=== PATIENT | female | born 1960 | race African-American/Black ===

== ENCOUNTER 2017-04-06 21:22 | Emergency (ER) | payer SELFPAY ==
[~2017-04-06] VITALS: Ht 165.1 cm; Wt 95.3 kg
[2017-04-06 21:25] VITALS: BP 181/104
[2017-04-06] MEDS ORDERED: ONDANSETRON 4 MG TAB.RAPDIS ONE (21:56)
[2017-04-06] MEDS ORDERED: HYDROMORPHONE INJ 2 MG/ML DISP.SYRIN ONE (21:56)
[2017-04-06] MEDS ORDERED: HYDROMORPHONE 1 MG/1 ML DISP.SYRIN IM ONE (22:00)
[2017-04-06] MEDS ORDERED: ONDANSETRON 4 MG TAB.RAPDIS SL ONE (22:00)
== END 2017-04-06 22:25 | disposition home or self-care (01) ==
LOC: ER 21:25
DX: M54.41 Lumbago with sciatica, right side (principal); I10 Essential (primary) hypertension; F17.200 Nicotine dependence, unspecified, uncomplicated; Z90.49 Acquired absence of other specified parts of digestive tract; Z90.89 Acquired absence of other organs; Z88.6 Allergy status to analgesic agent
CPT/HCPCS: A4606; J1170; Q0162; Z7610

== ENCOUNTER 2017-04-07 01:07 | Emergency (ER) | payer SELFPAY ==
[~2017-04-07] VITALS: Ht 167.6 cm; Wt 90.7 kg
--- NOTE | 2017-04-07 01:38 | NUR ---
PT AMBULATORY TO ER BED 6, PT HERE ABOUT 3 HOURS AGO FOR THE SAME COMPLAINT. PT C/O LOWER BACK PAIN. VSS/NAD NOTED/RESP EVEN UNLABORED/SKIN WARM AND DRY/AOX4. MD AT BEDSIDE FOR EVAL.
[2017-04-07] MEDS ORDERED: HYDROCODONE/APAP 10/325MG 1 EA TABLET ONE (01:42)
[2017-04-07] MEDS ORDERED: DIAZEPAM 5 MG/ML 2 ML DISP.SYRIN ONE (01:52)
[2017-04-07] MEDS ORDERED: HYDROCODONE/APAP 10/325MG 1 EA TABLET PO ONE (02:00)
[2017-04-07] MEDS ORDERED: DIAZEPAM 5 MG/ML 2 ML DISP.SYRIN IM ONE (02:00)
[2017-04-07 02:21] VITALS: BP 158/89
--- NOTE | 2017-04-07 02:21 | NUR ---
Patient discharged to home in stable condition. Written and verbal after care instructions given. Patient verbalizes understanding of instruction. Patient is ambulatory with steady gait, no further complaints.
== END 2017-04-07 02:22 | disposition home or self-care (01) ==
LOC: ER 01:11
DX: M54.41 Lumbago with sciatica, right side (principal); G89.29 Other chronic pain; I10 Essential (primary) hypertension; F17.200 Nicotine dependence, unspecified, uncomplicated; Z90.49 Acquired absence of other specified parts of digestive tract; Z90.89 Acquired absence of other organs; Z88.6 Allergy status to analgesic agent
CPT/HCPCS: A4606; J3360; Z7610

== ENCOUNTER 2020-06-13 20:46 | Inpatient (IN) | payer MEDICAID ==
[~2020-06-13] VITALS: Ht 165.1 cm; Wt 104.3 kg
--- NOTE | 2020-06-13 21:00 | NUR ---
MS RN/ RECEIVED ADMIT PT RECEIVED. STABLE CONDITION. FROM [facility]. ALERT AND ORIENTED X4. CALM, COOPERATIVE. CHIEF COMPLAINT/ DIAGNOSIS OF CHEST PAIN. ADMINISTERED MORPHINE [id number]. LAC # 18. INTACT, PATENT, FLUSHING WELL. PT NPO BY MIDNIGHT. WILL CONTINUE TO MONITOR. WILL CONTINUE PLAN OF CARE.
[2020-06-13 22:00] VITALS: BP 106/69
[2020-06-13] MEDS ORDERED: MORPHINE SULFATE INJ 2 MG/ML DISP.SYRIN IV PRN (23:00)
[2020-06-13] MEDS ORDERED: ACETAMINOPHEN 650 MG/SUPP.RECT RC PRN (23:00)
[2020-06-13] MEDS ORDERED: ONDANSETRON HCL/PF 4 MG/2 ML VIAL IV PRN (23:00)
[2020-06-13] MEDS: PANTOPRAZOLE 40 MG VIAL IV SCH (23:19)
[2020-06-14] VITALS (15 sets, daily range): BP systolic 77–125; BP diastolic 16–78
[2020-06-14] MEDS: IV D5/0.45 NACL 1,000 ML IV SCH ×2 (00:33→17:25)
[2020-06-14] MEDS ORDERED: IODIXANOL 150 ML IV ONE ×2 (06:24→08:35)
[2020-06-14] MEDS ORDERED: IV NS 0.9% 1,000 ML ONE (06:24)
[2020-06-14] MEDS ORDERED: LIDOCAINE HCL/MPF 1% 30 ML VIAL IJ ONE (06:24)
[2020-06-14] MEDS ORDERED: MIDAZOLAM HCL 2 MG/2ML VIAL ONE ×2 (07:23→07:40)
[2020-06-14] MEDS ORDERED: NITROGLYCERIN ICAR 1,000 MCG/10 ML VIAL ICAR ONE ×2 (07:23→08:09)
[2020-06-14] MEDS ORDERED: FENTANYL PF 100MCG/2ML AMPUL ONE ×2 (07:24→07:39)
--- NOTE | 2020-06-14 07:32 | NUR ---
CHILD CARE COORDINATOR CLOSING PT LAYING DOWN. ALERT AND ORIENTED X4. CALM, COOPERATIVE. CARDIAC CATH. SCHEDULED 0730. PT AWARE. SIGNED CONSENT. NPO SINCE MIDNIGHT. ST 105. LAC #18 REMOVED. RIGHT HAND AC #20. PATENT, INTACT, FLUSHING WELL. BED LOCKED. CALL LIGHT WITHIN REACH. WILL ENDORSE TO NEXT SHIFT. WILL CONTINUE TO MONITOR. WILL CONTINUE PLAN OF CARE.
[2020-06-14] MEDS ORDERED: diphenhydrAMINE HCL 50 MG/ML VIAL ONE ×2 (07:42→08:38)
[2020-06-14] MEDS ORDERED: HYDROMORPHONE 1 MG/1 ML DISP.SYRIN ONE ×2 (08:00→08:32)
[2020-06-14] MEDS ORDERED: NICARDIPINE HCL 25 MG/10 ML VIAL IV ONE (08:01)
[2020-06-14] MEDS ORDERED: HEPARIN SODIUM, PORCINE 5000 UNITS/1 ML VIAL ONE (08:09)
[2020-06-14] MEDS ORDERED: IODIXANOL 320MG/ML 50 ML IV ONE (08:09)
[2020-06-14] MEDS ORDERED: HEPARIN SODIUM, PORCINE 1,000 UNIT/ML VIAL ONE (08:09)
[2020-06-14] MEDS ORDERED: TICAGRELOR 90 MG TABLET PO ONE (08:18)
[2020-06-14] MEDS ORDERED: ASPIRIN 81 MG TAB.CHEW ONE (08:19)
[2020-06-14] MEDS ORDERED: hydrALAZINE HCL IV 20 MG VIAL ONE ×2 (08:23→09:05)
[2020-06-14] MEDS ORDERED: IODIXANOL 320MG/ML 100 ML IV ONE (08:56)
[2020-06-14] MEDS ORDERED: MORPHINE SULFATE INJ 2 MG/ML DISP.SYRIN ONE (08:56)
--- NOTE | 2020-06-14 09:30 | NUR ---
tele fluid designer: notes pt out of unit, report given by [email or web address] ([email or web address]).
--- NOTE | 2020-06-14 10:00 | NUR ---
ROSE GRADER NOTES RECEIVED PT FROM THERAPEUTIC SPECIALIST, BED SIDE REPORT OBTAIN FROM THERAPEUTIC SPECIALIST RN. PT IS AWAKE AND ORIENTED X3. WAS IN THERAPEUTIC SPECIALIST FOR STENT PLACEMENT TO RCA AND MID LAV. RIGHT RADIAL TR BAND AND RIGHT GROIN ANGIO SEAL IN PLACE. NO BLEEDING NOTED. WILL CONTINUE MONITOR.
[2020-06-14] MEDS ORDERED: CHOL100040 PO (12:29)
[2020-06-14] MEDS ORDERED: GABA-532 PO ×2 (12:29)
[2020-06-14] MEDS ORDERED: AMLO5TAB4 PO (12:29)
[2020-06-14] MEDS ORDERED: LISI40TA4 PO (12:29)
[2020-06-14] MEDS ORDERED: ROSU20TA2 PO (12:29)
[2020-06-14] MEDS ORDERED: CYCL10TA9 PO (12:29)
[2020-06-14] MEDS ORDERED: NAPR-1009 PO (12:29)
[2020-06-14] MEDS ORDERED: ATEN25TA PO (12:29)
[2020-06-14] MEDS ORDERED: HYDR-3976 PO (12:29)
[2020-06-14] MEDS: LORAZEPAM INJ 2 MG/ML VIAL IV PRN (12:42)
[2020-06-14] MEDS: METOPROLOL TARTRATE 25 MG TABLET PO SCH ×2 (13:57→20:01)
--- NOTE | 2020-06-14 19:30 | NUR ---
STORE SALES MANAGER NOTES RECEIVED PATIENT IN BED, AWAKE, A/O X3 ABLE TO VERBALIZE NEEDS. RIGHT WRIST WITH PRESSURE DRESSING, REPLACED WITH TEGADERM. SITE CLEAN AND DRY, NO SWELLING OR BLEEDING, DENIES ANY TINGLING SENSATION IN FINGERS, PULSE PALPABLE. RIGHT FEMORAL SITE DRESSING CLEAN DRY AND INTACT, NO BLEEDING NOTED, DENIES ANY TINGLING OR NUMBNESS IN LOWER EXTREMITY. WILL MONITOR CLOSELY
--- NOTE | 2020-06-14 19:56 | NUR ---
PROFESSOR IN FAMILY STUDIES NOTES PATIENT VERBALIZES SHE IS "FEELING ANXIOUS" AND REPORTS THAT ATIVAN THAT WAS GIVEN EARLIER TODAY WAS INEFFECTIVE. PATIENT DENIES ANY CHEST PAIN. OFFERED O2 VIA NC TO PATIENT, BUT SHE REFUSES. VITAL SIGNS STABLE. DR ABRAMS NOTIFIED, WITH NEW ORDER FOR XANAX 2MG PO Q8H FOR ANXIETY. WILL CARRY OUT NEW ORDERS
[2020-06-14] MEDS: ALPRAZOLAM 1 MG TABLET PO PRN (20:13)
[2020-06-14] MEDS: PANTOPRAZOLE 40 MG VIAL IV SCH (23:09)
[2020-06-15] VITALS (32 sets, daily range): BP systolic 35–175; BP diastolic 22–114
--- NOTE | 2020-06-15 | NUR ---
PROFESSIONAL BONDSMAN NOTES XANAX PO EFFECTIVE, PATIENT LAYING IN BED, AROUSABLE, BUT STATES "IM FEELING A LOT BETTER", DENIES ANY FEELING OF ANXIETY, DENIES CHEST PAIN. WILL MONITOR CLOSELY
[2020-06-15 04:15] LABS: BASOPHILS % (AUTO) 0.1 % (0.0-2.0); EOSINOPHILS % (AUTO) 0.2 % (0.0-6.0); HEMATOCRIT 40 % (33-45); HEMOGLOBIN 13.1 g/dL (11.5-14.8); LYMPHOCYTES # (AUTO) 1.6 /CMM (0.8-4.8); LYMPHOCYTES % (AUTO) 16.9 % (20.0-44.0); MEAN CORPUSCULAR HGB CONC 33 g/dl (31.0-36.0); MEAN CORPUSCULAR VOLUME 85 fL (82-100); MONOCYTES # (AUTO) 0.8 /CMM (0.1-1.30); MONOCYTES % (AUTO) 9.1 % (2.0-12.0); NEUTROPHILS # (AUTO) 6.8 /CMM (1.8-8.9); NEUTROPHILS % (AUTO) 73.7 % (43.0-81.0); PLATELET COUNT (AUTO) 267 /CMM (150-450); RED BLOOD CELL COUNT(AUTO) 4.69 MIL/uL (4.0-5.2); WHITE BLOOD COUNT (AUTO) 9.2 K/uL (4.3-11.0)
[2020-06-15 04:45] LABS: CREATININE 0.6 mg/dL (0.6-1.3); MAGNESIUM 1.9 mg/dL (1.8-2.4); PHOSPHORUS 3.2 mg/dL (2.5-4.9)
[2020-06-15 05:11] LABS: POTASSIUM 2.7 mmol/L (3.5-5.1)
--- NOTE | 2020-06-15 06:50 | NUR ---
MEDICAL SCIENTIFIC LIAISON NOTES POTASSIUM LEVEL = 2.7. DR ABRAMS NOTIFIED, WITH ORDER FOR DUR 40 MEQ PO X 2 DOSES, 4 HOURS APART, TOTAL OF 80 MEQ KDUR PO. WILL CARRY OUT NEW ORDERS
--- NOTE | 2020-06-15 08:00 | NUR ---
RN OPENING PT IS SITTING UP ALERT AND ORIENTED X4. CALM, COOPERATIVE. PT AWARE. SIGNED CONSENT. LEFT HAND AC #20. PATENT, INTACT, FLUSHING WELL.SAFETY MEASUREMENTS ARE IMPLEMENTED PER HOSPITAL POLICY. BED LOCKED. CALL LIGHT WITHIN REACH. WILL ENDORSE TO NEXT SHIFT. WILL CONTINUE TO MONITOR
[2020-06-15] MEDS: POTASSIUM CHLORIDE 20 MEQ TAB.PRT.SR PO SCH ×2 (08:10→08:39)
[2020-06-15] MEDS: METOPROLOL TARTRATE 25 MG TABLET PO SCH ×2 (08:16→21:36)
[2020-06-15] MEDS: IV D5/0.45 NACL 1,000 ML IV SCH (09:45)
--- NOTE | 2020-06-15 16:00 | NUR ---
RN NOTES NO ACUTE RESPIRATORY DISTRESS NOTED.
--- NOTE | 2020-06-15 18:44 | NUR ---
RN CLOSING NOTES PT IS SITTING UP ALERT AND ORIENTED X4. CALM, COOPERATIVE. PT AWARE. SIGNED CONSENT. LEFT HAND AC #20. PATENT, INTACT, FLUSHING WELL.SAFETY MEASUREMENTS ARE IMPLEMENTED PER HOSPITAL POLICY. BED LOCKED. CALL LIGHT WITHIN REACH. WILL ENDORSE TO NEXT SHIFT. PT SIGNED CONSENT FOR PROCEDURE AND ANESTHESIA. WILL ENDORSE TO PM NURSE FOR RAIANE
--- NOTE | 2020-06-15 19:00 | NUR ---
EDGERMAN NOTES PATIENT'S BP CUFF NOTED TO BE OUT OF PLACE, WRAPPED AROUND PATIENTS ELBOW. CUFF REPOSITIONED. BP WNL, WILL MONITOR
--- NOTE | 2020-06-15 19:40 | NUR ---
MANAGER SUPPORT SERVICES NOTES POST PROCEDURE ORDERS-MEDICATIONS TRANSCRIBED
[2020-06-15] MEDS: ALPRAZOLAM 1 MG TABLET PO PRN (21:36)
[2020-06-15] MEDS: PANTOPRAZOLE 40 MG VIAL IV SCH (22:02)
[2020-06-16] VITALS (27 sets, daily range): BP systolic 74–194; BP diastolic 39–152
[2020-06-16 04:22] LABS: BASOPHILS % (AUTO) 0.2 % (0.0-2.0); EOSINOPHILS % (AUTO) 0.3 % (0.0-6.0); HEMATOCRIT 39 % (33-45); HEMOGLOBIN 12.4 g/dL (11.5-14.8); LYMPHOCYTES # (AUTO) 2.3 /CMM (0.8-4.8); LYMPHOCYTES % (AUTO) 28.4 % (20.0-44.0); MEAN CORPUSCULAR HGB CONC 32 g/dl (31.0-36.0); MEAN CORPUSCULAR VOLUME 86 fL (82-100); MONOCYTES # (AUTO) 0.9 /CMM (0.1-1.30); MONOCYTES % (AUTO) 11.4 % (2.0-12.0); NEUTROPHILS # (AUTO) 4.8 /CMM (1.8-8.9); NEUTROPHILS % (AUTO) 59.7 % (43.0-81.0); PLATELET COUNT (AUTO) 252 /CMM (150-450); WHITE BLOOD COUNT (AUTO) 8.1 K/uL (4.3-11.0)
[2020-06-16 04:34] LABS: CALCIUM, SERUM 8.9 mg/dL (8.5-10.1); CREATININE 0.6 mg/dL (0.6-1.3); MAGNESIUM 1.9 mg/dL (1.8-2.4); PHOSPHORUS 3.7 mg/dL (2.5-4.9); POTASSIUM 3.6 mmol/L (3.5-5.1)
[2020-06-16] MEDS: IV D5/0.45 NACL 1,000 ML IV SCH ×2 (04:37→18:27)
--- NOTE | 2020-06-16 08:36 | NUR ---
PT ABLE TO SIGN CONSENT FOR PROCEDURE TO REVASCULARIZE THE RIGHT SUBCLAVIAN ARTERY AND LEFT COMMON ILIAC ARTERY AT 1200
[2020-06-16] MEDS: PANTOPRAZOLE 40 MG TABLET.DR PO SCH (08:41)
[2020-06-16] MEDS: TICAGRELOR 90 MG TABLET PO SCH ×2 (09:00→17:26)
[2020-06-16] MEDS: METOPROLOL TARTRATE 25 MG TABLET PO SCH ×2 (09:00→21:07)
[2020-06-16] MEDS: ASPIRIN 81 MG TAB.CHEW PO SCH (09:00)
[2020-06-16] MEDS ORDERED: IODIXANOL 150 ML IV ONE ×2 (10:37→11:35)
[2020-06-16] MEDS ORDERED: LIDOCAINE HCL/MPF 1% 30 ML VIAL IJ ONE (10:37)
--- NOTE | 2020-06-16 11:00 | NUR ---
PT TRANSPORTED FOR PROCEDURE
[2020-06-16] MEDS ORDERED: KETAMINE HCL (500MG/10ML) 50 MG/ML VIAL ONE (11:10)
[2020-06-16] MEDS ORDERED: FENTANYL PF 100MCG/2ML AMPUL ONE ×2 (11:11→11:30)
[2020-06-16] MEDS ORDERED: MIDAZOLAM HCL 2 MG/2ML VIAL ONE (11:30)
--- NOTE | 2020-06-16 12:00 | NUR ---
1200 VITALS NOT DOCUMENTED, PT IN PROCEDURE Addendum: 06/16/20 at 1522 by YOU SOMMER RN Amended: Links added.
[2020-06-16] MEDS ORDERED: PROPOFOL 100 ML ONE (12:12)
[2020-06-16] MEDS ORDERED: HEPARIN SODIUM, PORCINE 1,000 UNIT/ML VIAL ONE (12:13)
[2020-06-16] MEDS ORDERED: IODIXANOL 320MG/ML 50 ML IV ONE (12:13)
[2020-06-16] MEDS ORDERED: HEPARIN SODIUM, PORCINE 5000 UNITS/1 ML VIAL ONE (12:13)
[2020-06-16] MEDS ORDERED: NITROGLYCERIN ICAR 1,000 MCG/10 ML VIAL ICAR ONE (13:07)
--- NOTE | 2020-06-16 14:00 | NUR ---
PT RETURN FROM PROCEDURE, INSTRUCTED BY BOXING AND PRESSING SUPERVISOR TO LAY FLAT FOR 4 HOURS, AND TO BE BEDREST FOR 24 HOURS. PT IS ANXIOUS. IV NS @ 100 ML X 6 HOURS WRITTEN ORDER BY MD SILVA CURRENTLY INFUSING.
--- NOTE | 2020-06-16 14:00 | NUR ---
PT RETURNS FROM PROCEDURE, NEW ORDERS RECEIVED FOR NS @ 100 ML/HR X 6 HOURS, ASPIRIN 81 MG BID PO, AND CONTINUE BRILINTA PER MD SILVA. PT TO LAY FLAT FOR 4 HOURS, AND NO ACTIVITY FOR 24 HOURS
[2020-06-16] MEDS: LISINOPRIL (20MG) 20 MG TABLET PO SCH (15:10)
[2020-06-16] MEDS: AMLODIPINE BESYLATE 5 MG TABLET PO SCH (15:10)
[2020-06-16] MEDS: ALPRAZOLAM 1 MG TABLET PO PRN (15:11)
--- NOTE | 2020-06-16 15:21 | NUR ---
1200 VITALS NOT DOCUMENTED, PT IN PROCEDURE
[2020-06-16] MEDS: LORAZEPAM INJ 2 MG/ML VIAL IV PRN (17:26)
--- NOTE | 2020-06-16 19:00 | NUR ---
PER BRASS FINISHER GINA, PT TO HAVE MEDS BRILINTA SENT TO PT PRIMARY PHARMACY [facility]. [facility] DOES NOT HAVE THE MED IN STOCK, SO PT MAY MEDICAL REIMBURSEMENT MANAGER MED AT [facility]. UNABLE TO REACH PT DAUGHTER CAROLA IF SHE CAN MEDICAL REIMBURSEMENT MANAGER THE MEDICATION. PER BRASS FINISHER, DR SILVA WILL NOT RELEASE HER UNTIL PT FAMILY HAS MEDICATION AT HOME.
[2020-06-17] VITALS (41 sets, daily range): BP systolic 60–174; BP diastolic 19–125
[2020-06-17] MEDS: ALPRAZOLAM 1 MG TABLET PO PRN ×2 (01:29→20:46)
[2020-06-17 03:50] LABS: BASOPHILS % (AUTO) 0.4 % (0.0-2.0); EOSINOPHILS % (AUTO) 0.1 % (0.0-6.0); HEMATOCRIT 38 % (33-45); HEMOGLOBIN 12.3 g/dL (11.5-14.8); LYMPHOCYTES # (AUTO) 1.4 /CMM (0.8-4.8); LYMPHOCYTES % (AUTO) 14.3 % (20.0-44.0); MEAN CORPUSCULAR HGB CONC 32 g/dl (31.0-36.0); MEAN CORPUSCULAR VOLUME 86 fL (82-100); MONOCYTES # (AUTO) 0.9 /CMM (0.1-1.30); MONOCYTES % (AUTO) 8.7 % (2.0-12.0); NEUTROPHILS # (AUTO) 7.7 /CMM (1.8-8.9); NEUTROPHILS % (AUTO) 76.5 % (43.0-81.0); PLATELET COUNT (AUTO) 232 /CMM (150-450); RED BLOOD CELL COUNT(AUTO) 4.45 MIL/uL (4.0-5.2); WHITE BLOOD COUNT (AUTO) 10.1 K/uL (4.3-11.0)
[2020-06-17 04:11] LABS: CALCIUM, SERUM 8.6 mg/dL (8.5-10.1); CREATININE 0.6 mg/dL (0.6-1.3); MAGNESIUM 1.8 mg/dL (1.8-2.4); PHOSPHORUS 3.4 mg/dL (2.5-4.9); POTASSIUM 3.2 mmol/L (3.5-5.1)
--- NOTE | 2020-06-17 07:31 | NUR ---
RECEIVED PATIENT IN BED. NO ACUTE DISTRESS NOTED. PATIENT ALERT & ORIENTED X4, EPISODES OF ANXIETY. PATIENT ON ROOM AIR, SATURATING >92%. PATIENT ON BANDER AND CELLOPHANER MACHINE, NSR NOTED CURRENTLY, BUT PER REPORT ST WITH HR IN 100S BASELINE WELL. PATIENT LEFT HAND IV ACCESS, RIGHT HAND IV ACCESS INTACT, PATENT. PATIENT SAFETY MEASURES MAINTAINED. CALL LIGHT WITHIN REACH. WILL CONTINUE TO MONITOR.
[2020-06-17] MEDS: ASPIRIN 81 MG TAB.CHEW PO SCH (08:07)
[2020-06-17] MEDS: PANTOPRAZOLE 40 MG TABLET.DR PO SCH (08:08)
[2020-06-17] MEDS: TICAGRELOR 90 MG TABLET PO SCH ×2 (08:08→16:21)
[2020-06-17] MEDS: METOPROLOL TARTRATE 25 MG TABLET PO SCH ×2 (08:12→21:05)
[2020-06-17] MEDS: LISINOPRIL (20MG) 20 MG TABLET PO SCH (08:12)
[2020-06-17] MEDS: AMLODIPINE BESYLATE 5 MG TABLET PO SCH (08:12)
--- NOTE | 2020-06-17 09:57 | NUR ---
PATIENT ONE TIME MORPHINE DOSE ORDERED. PATIENT STENT PROCEDURE WAS 06/16/2020, PATIENT REPORTS 0/10 PAIN, NON-ADMIN MORPHINE DOSE
[2020-06-17] MEDS: IV D5/0.45 NACL 1,000 ML IV SCH (09:59)
[2020-06-17] MEDS ORDERED: MORPHINE SULFATE INJ 4 MG/ML DISP.SYRIN IV ONE (10:00)
[2020-06-17] MEDS ORDERED: CYCLOBENZAPRINE 10 MG TABLET PO PRN (10:00)
[2020-06-17] MEDS ORDERED: GABAPENTIN 100 MG CAPSULE PO PRN (10:00)
[2020-06-17] MEDS ORDERED: HYDROCODONE/APAP 10/325MG TABLET PO PRN (10:30)
[2020-06-17] MEDS: POTASSIUM CHLORIDE 20 MEQ TAB.PRT.SR PO SCH ×2 (10:41→12:09)
--- NOTE | 2020-06-17 18:31 | NUR ---
PATIENT IN BED. NO ACUTE DISTRESS NOTED. PATIENT ALERT & ORIENTED X4, EPISODES OF ANXIETY. PATIENT ON ROOM AIR, SATURATING >94%. PATIENT ON CARCASS SPLITTER, NSR NOTED CURRENTLY, BUT PER REPORT ST WITH HR IN 100S BASELINE WELL. PATIENT LEFT AC IV ACCESS INTACT, PATENT. PATIENT SAFETY MEASURES MAINTAINED. CALL LIGHT WITHIN REACH. WILL ENDORSE PLAN OF CARE TO ONCOMING SHIFT
--- NOTE | 2020-06-17 19:15 | NUR ---
RN NOTE RECEIVED PT IN BED AWAKE AND ALERT/ORIENTED X 3 IN SEMI SMITH'S POSITION. PT IS ON ROOM AIR. RESPIRATIONS EVEN AND UNLABORED. VITAL SIGNS STABLE VIA BEDSIDE MONITOR. PT DENIES PAIN OR DISCOMFORT. LEFT GROIN S/P CARDIAC CATH SITE INTACT WITHOUT SIGNS OF BLEEDING. SKIN INTACT. PT WITH INDEPENDENT BED MOBILITY. IV SITES PATENT AND INTACT WITHOUT SIGNS OF COMPLICATIONS AT SITES. D5 1/2 NS @ 60CC/HOUR RUNNING ORDERED. PLAN OF CARE DISCUSSED, SAFETY MEASURES IN PLACE PER PROTOCOL, BED ALARM ON, CALL LIGHT WITHIN REACH, BED LOCKED AND IN LOW POSITION, SIDE RAILS UP X 2, WILL MONITOR PATIENT.
[2020-06-17] MEDS ORDERED: GABAPENTIN 100 MG CAPSULE PO SCH (22:00)
[2020-06-17] MEDS ORDERED: ATORVASTATIN 40 MG TABLET PO SCH (22:00)
[2020-06-18] VITALS (19 sets, daily range): BP systolic 89–142; BP diastolic 20–80
[2020-06-18] MEDS: IV D5/0.45 NACL 1,000 ML IV SCH (02:16)
--- NOTE | 2020-06-18 03:30 | NUR ---
RN NOTE PT REFUSED BED BATH. COMPLETE LINEN CHANGE COMPLETED PER PT REQUEST. VITAL SIGNS STABLE. WILL CONTINUE TO MONITOR.
[2020-06-18 04:21] LABS: BASOPHILS % (AUTO) 0.3 % (0.0-2.0); EOSINOPHILS % (AUTO) 0.4 % (0.0-6.0); HEMATOCRIT 39 % (33-45); HEMOGLOBIN 12.7 g/dL (11.5-14.8); LYMPHOCYTES % (AUTO) 19.9 % (20.0-44.0); MEAN CORPUSCULAR HGB CONC 33 g/dl (31.0-36.0); MEAN CORPUSCULAR VOLUME 86 fL (82-100); MONOCYTES # (AUTO) 1.2 /CMM (0.1-1.30); MONOCYTES % (AUTO) 12.6 % (2.0-12.0); NEUTROPHILS # (AUTO) 6.6 /CMM (1.8-8.9); NEUTROPHILS % (AUTO) 66.8 % (43.0-81.0); PLATELET COUNT (AUTO) 229 /CMM (150-450); RED BLOOD CELL COUNT(AUTO) 4.51 MIL/uL (4.0-5.2); WHITE BLOOD COUNT (AUTO) 9.9 K/uL (4.3-11.0)
[2020-06-18 04:35] LABS: CALCIUM, SERUM 8.9 mg/dL (8.5-10.1); CREATININE 0.7 mg/dL (0.6-1.3); MAGNESIUM 2.1 mg/dL (1.8-2.4); PHOSPHORUS 4.2 mg/dL (2.5-4.9); POTASSIUM 3.6 mmol/L (3.5-5.1)
--- NOTE | 2020-06-18 07:03 | NUR ---
RN NOTE NO ACUTE CHANGES OBSERVED OVERNIGHT. PT SLEEPING IN BED IN SEMI SMITH'S POSITION. PT IS ON ROOM AIR. RESPIRATIONS EVEN AND UNLABORED. VITAL SIGNS STABLE VIA BEDSIDE MONITOR. NO SIGNS OF PAIN OR DISCOMFORT. LEFT GROIN S/P CARDIAC CATH SITE INTACT WITHOUT SIGNS OF BLEEDING. SKIN INTACT. PT WITH INDEPENDENT BED MOBILITY. IV SITES PATENT AND INTACT WITHOUT SIGNS OF COMPLICATIONS AT SITES. D5 1/2 NS @ 60CC/HOUR RUNNING ORDERED. ALL NEEDS MET AND ATTENDED TO. SAFETY MEASURES IN PLACE PER PROTOCOL, BED ALARM ON, CALL LIGHT WITHIN REACH, BED LOCKED AND IN LOW POSITION, SIDE RAILS UP X 2, ENDORSED TO MORNING RN FOR ARIANE.
[2020-06-18] MEDS: METOPROLOL TARTRATE 25 MG TABLET PO SCH (08:40)
[2020-06-18] MEDS: ASPIRIN 81 MG TAB.CHEW PO SCH (08:40)
[2020-06-18] MEDS: LISINOPRIL (20MG) 20 MG TABLET PO SCH (08:40)
[2020-06-18] MEDS: PANTOPRAZOLE 40 MG TABLET.DR PO SCH (08:41)
[2020-06-18] MEDS: TICAGRELOR 90 MG TABLET PO SCH (08:42)
[2020-06-18] MEDS ORDERED: LISINOPRIL (20MG) 20 MG TABLET PO SCH (09:00)
[2020-06-18] MEDS ORDERED: ATENOLOL 25 MG TABLET PO SCH (09:00)
[2020-06-18] MEDS ORDERED: NIFEdipine XL (30MG) 30 MG TAB PO SCH (09:00)
[2020-06-18] MEDS ORDERED: CHOLECALCIFEROL 1,000 UNIT TABLET (VIT D3) PO SCH (09:00)
--- NOTE | 2020-06-18 09:00 | NUR ---
ICU/RN PT IS AWAKE ,ALERT .V/S STABLE,AFEBRILE.NO PAIN REPORTED AT THIS TIME.ON RA,SAT O2-98%.IV INFUSING ORDERED.DUE MEDS ARE GIVEN ORDERED.ONTINUE TO MONITOR.
[2020-06-18] MEDS ORDERED: PANT40TA2 PO (13:12)
[2020-06-18] MEDS ORDERED: ATEN25TA PO (13:12)
[2020-06-18] MEDS ORDERED: LISI-603 PO (13:12)
[2020-06-18] MEDS ORDERED: TICA90TA PO (13:12)
[2020-06-18] MEDS ORDERED: NIFE-35 PO (13:12)
[2020-06-18] MEDS ORDERED: ASPI-1169 PO (13:12)
--- NOTE | 2020-06-18 14:30 | NUR ---
ICU/RN DR HERNANDEZ SEEN THE PT.STABLE FOR DISCHARGE.MEDS INSTRUCTION GIVEN. PT YELLOW BRACELET IS MISSING .PT SAID IT WAS ON THE TABLE FOR COUPLE OF DAYS IN THE SMALL BAG.CHARGE NURSE ROMEO NOTIFIED..HER FAMILY NOTIFIED.
--- NOTE | 2020-06-18 15:00 | NUR ---
ICU/RN PT DISCHARGE HOME WITH THE FAMILY.V/S STABLE ,AFEBRILE.NO PAIN REPORTED AT THIS TIME.ALL INSTRUCTION GIVEN. PT IS IN STABLE CONDITION.
== END 2020-06-18 15:00 | disposition home or self-care (01) | DRG 175 ==
LOC: TELE 20:46 → ICU 06-14 09:45
PROVIDERS: ADMIT Registered Nurse; ATTEND Nurse Practitioner Acute Care
PROC: 027135Z Dilation of Coronary Artery, Two Arteries with Two Drug-eluting Intraluminal Devices, Percutaneous Approach (ICD-10-PCS; principal; 2020-06-14)
PROC: 4A023N7 Measurement of Cardiac Sampling and Pressure, Left Heart, Percutaneous Approach (ICD-10-PCS; 2020-06-14)
PROC: B211YZZ Fluoroscopy of Multiple Coronary Arteries using Other Contrast (ICD-10-PCS; 2020-06-14)
PROC: 047D341 Dilation of Left Common Iliac Artery with Drug-eluting Intraluminal Device, using Drug-Coated Balloon, Percutaneous Approach (ICD-10-PCS; 2020-06-16)
PROC: 037434Z Dilation of Left Subclavian Artery with Drug-eluting Intraluminal Device, Percutaneous Approach (ICD-10-PCS; 2020-06-16)
DX: I25.110 Atherosclerotic heart disease of native coronary artery with unstable angina pectoris (principal); I24.9 Acute ischemic heart disease, unspecified; E66.01 Morbid (severe) obesity due to excess calories; Z68.38 Body mass index [BMI] 38.0-38.9, adult; I11.0 Hypertensive heart disease with heart failure; I50.33 Acute on chronic diastolic (congestive) heart failure; E11.51 Type 2 diabetes mellitus with diabetic peripheral angiopathy without gangrene; E78.5 Hyperlipidemia, unspecified; I70.8 Atherosclerosis of other arteries; I70.0 Atherosclerosis of aorta; F17.200 Nicotine dependence, unspecified, uncomplicated; F41.9 Anxiety disorder, unspecified
CPT/HCPCS: 36415; 75625; 75630-TC; 80048-TC; 83735-TC; 84100-TC; 84132-TC; 85025-TC; 92924; 92980; 92981; C1714; C1725; C1769; C1887; C1894; C9113; C9600; C9601; G0378; G0500; J0360; J1170; J1200; J1644; J2060; J2250; J2270; J3010; J3490; J7070; Q9967